=== PATIENT | female | born 1965 | race Caucasian/White ===

== ENCOUNTER 2025-04-19 15:05 | Emergency (ER) | payer BC, SELFPAY ==
[2025-04-19 15:07] VITALS: BP 150/75; PULSE 95; TEMP 36.7; O2SAT 97; BMI 24.3
[2025-04-19 16:11] VITALS: BP 135/84; PULSE 74; O2SAT 98
--- NOTE | 2025-04-20 00:12 | ED_ITS ---
HPI - Extremity Problem General: Chief complaint: Extremity Problem,Nontraumatic Stated complaint: left arm pain Time Seen by Provider: 04/19/25 15:19 History of Present Illness: 59 yo female patient presents to ER with left arm pain x a few weeks. 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 Pt states pain has progressively worsened and today her ROM is very limited due to the pain. Pt deneis any trauma. Related Data Previous Rx's ?Medication ?Instructions ?Recorded hydrocodone 5 mg-acetaminophen 325 1 tab PO Q6H PRN pa in #10 tabs 04/19/25 mg tablet prednisone 20 mg tablet 20 mg PO BID 5 days #10 tabs 04/19/25 Allergies Allergy/AdvReac Type Severity Reaction Status Date / Time dicloxacillin Allergy Unknown Verified 04/19/25 15:15 sulfamethoxazole (From Allergy Unknown Verified 04/19/25 15:15 Bactrim) trimethoprim (From Bactrim) Allergy Unknown Verified 04/19/25 15:15 Review of Systems General: Reports: 10 or more systems reviewed and unremarkable except in HPI and below Physical Exam Const: COMMON NORMALS: no acute distress, patient oriented x3, healthy appearing and well nourished GENERAL APPEARANCE: cooperative, comfortable, well kempt and well developed; not ill appearing ORIENTATION/CONSCIOUSNESS: Yes awake Neck/C-Spine: COMMON NORMALS: full ROM, no lymphadenopathy and supple GENERAL: Yes normal visual inspection CERVICAL SPINE: Yes cervical ROM normal Chest: COMMONS NORMALS: normal inspection of the chest and normal palpation of entire chest wall Resp: COMMON NORMALS: normal respiratory effort Cardio: COMMON NORMALS: regular rate RATE: regular rate Back/Pelvis: COMMON NORMALS: thoracic and lumbar spine normal to inspection, no thoracic nor lumbar tenderness and thoraco-lumbar ROM normal THORACIC SPINE/UPPER BACK: Yes normal to inspection LUMBAR SPINE/LOWER BACK: Yes normal to inspection Extremity: COMMON NORMALS: normal to inspection GENERAL: Yes normal exam except as noted Neuro: COMMON NORMALS: patient oriented x3, CN's II-XII intact bilaterally, moves all extremities, no focal motor deficits, no sensory deficits noted and gait normal Psych: COMMON NORMALS: mental status grossly normal, Normal thought process present, cooperative, normal affect, speech normal, activity/motor behavior normal, denies hallucinations, denies homicidal ideation and denies suicidal ideation APPEARANCE: Yes grossly normal and Yes well kempt ATTITUDE: Yes calm ACTIVITY/MOTOR BEHAVIOR: Yes appropriate eye contact SPEECH: Yes normal speech THOUGHT PROCESS: Normal thought process present THOUGHT CONTENT: Yes Normal thought content present ATTENTION/CONCENTRATION: Yes attention grossly intact MEMORY/COGNITION: Yes memory grossly intact INSIGHT: Good insight present (Psych) JUDGEMENT: Good judgement present (Psych) Skin: COMMON NORMALS: no rashes or lesions noted, no wounds, turgor normal, no jaundice, no petechiae and no mottling GENERAL SKIN EXAM: no rashes or lesions noted and turgor normal Course Vital Signs: Vital signs: Vital Signs Temperature 98.1 F 04/19/25 15:07 Pulse Rate 74 04/19/25 16:11 Blood Pressure 135/84 04/19/25 16:11 Pulse Oximetry 98 04/19/25 16:11 Oxygen Delivery Me thod Room Air 04/19/25 15:07 MDM - Extremity (Nontraumatic) Medical Decision Making Patient is well appearing non toxic and in no acute distress. 59 yo female patient presents to ER with left arm pain x a few weeks. 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 Pt states pain has progressively worsened and today her ROM is very limited due to the pain. Pt deneis any trauma. Pt is NVI distally. Pt has limited ROM due to pain. Pt denies chest pain or SOB. Pain is only with movement. Pain is consistent with tennis elbow. Pt has no evidence of infectious process such as septic arthritis. I will start patient on a short course of steroids. I have reviewed ROM exercises with patient. I have advised home care, return precautions and follow up. No radiology studies performed this visit Discharge Plan Discharge Patient Disposition: Home Clinical Impression: Lateral epicondylitis (tennis elbow) Qualifiers: Laterality: left Qualified Code(s): M77.12 - Lateral epicondylitis, left elbow Condition: Stable Prescriptions: New prednisone 20 mg tablet 20 mg PO BID 5 Days Qty: 10 0RF hydrocodone-acetaminophen 5-325 mg tablet 1 tab PO Q6H PRN (Reason: pain) Qty: 10 0RF Discharge Orders: Discharge ED (Routine); Ordered 04/19/25 Ordered By: Arabella Ventura Referrals: Kimo Lira MD [Primary Care Provider, Family Practice] Discharge Diet: Advance as tolerated Discharge Activity: Increase activity as tolerated Patient Instructions: Tennis Elbow (ED), Opioid Safety, Pain Management Activity Restrictions/Additional Instructions: Take meds as prescribed Please do not drive or operate heavy machinery while taking [place] Perform Range of Motion exercises as demonstrated Return to ER if You suddenly have no feeling in your arm, hand, or fingers. You suddenly cannot move your arm, wrist, hand, or fingers Follow up with PCP if no improvement Print Language: Lithuanian Coding Level of Care Code ED Field Pipelines Supervisor for Kari Hermosillo
== END 2025-04-19 16:20 | disposition home or self-care (01) ==
PROVIDERS: Emergency Provider Registered Nurse; PCP Family Medicine
DX: M77.12 Lateral epicondylitis, left elbow (principal)
CPT/HCPCS: 99283

== ENCOUNTER → 2025-11-09 14:35 | Outpatient (BNVA) | payer BC, SELFPAY | PROVIDERS: PCP Family Medicine; Visit Provider Podiatrist Foot & Ankle Surgery | DX: M79.671 Pain in right foot (principal); M79.89 Other specified soft tissue disorders | CPT/HCPCS: 73630 ==